=== PATIENT | male | born 2000 | race Caucasian/White ===

== ENCOUNTER 2023-08-31 10:19 | Emergency (ER) | payer SELFPAY ==
[~2023-08-31] VITALS: Ht 175.3 cm; Wt 68.0 kg
[2023-08-31 10:24] VITALS: O2SAT 100
[2023-08-31] MEDS ORDERED: KETOROLAC 30MG/ML VIAL IM ONE (11:00)
[2023-08-31] MEDS ORDERED: ONDANSETRON 4MG ODT PO ONE (11:00)
[2023-08-31] MEDS ORDERED: TOPUD MT (12:32)
[2023-08-31] MEDS ORDERED: NAPR375T5 MT (12:32)
[2023-08-31 13:10] VITALS: BP 138/80; PULSE 85; RESP 18; TEMP 98.3
== END 2023-08-31 13:11 | disposition home or self-care (01) ==
LOC: ER 10:19
DX: R51.9 Headache, unspecified (principal); J45.909 Unspecified asthma, uncomplicated
CPT/HCPCS: 70450; 96372; 99285; Q0162; J1885; Z7610